=== PATIENT | male | born 1960 | race Caucasian/White ===

== ENCOUNTER 2016-12-07 11:53 | Inpatient (IN) | payer MEDICAID ==
[~2016-12-07] VITALS: Ht 180.3 cm; Wt 113.4 kg
[2016-12-07 12:06] VITALS: BP_SYST 144
[2016-12-07] MEDS ORDERED: ONDANSETRON 4 MG ODT TAB PO ONE (12:15)
[2016-12-07] MEDS ORDERED: NS 1000 ML BAG IV ONE (12:15)
[2016-12-07] MEDS ORDERED: CLINDAMYCIN 900 mg/50mL D5W 50 ML IV ONE (12:15)
[2016-12-07] MEDS ORDERED: traMADol HCL HCL 50 MG TABLET (ULTRAM) PO ONE (12:15)
[2016-12-07] MEDS ORDERED: VANCOMYCIN HCL 1,000 MG in D5W 250 ML IV ONE (12:15)
[2016-12-07] MEDS ORDERED: VANCOMYCIN HCL 1000 MG/VIAL IV ONE (13:02)
[2016-12-07 13:04] LABS: BASOPHILS # (AUTO) 0.1 K/uL (0.0-0.2); BASOPHILS % (AUTO) 0.7 % (0.0-2.0); EOSINOPHILS # (AUTO) 0.2 K/uL (0.0-0.4); EOSINOPHILS % (AUTO) 1.7 % (0.0-4.0); HEMATOCRIT 33.7 % (36-54); HEMOGLOBIN 11.1 g/dL (14.0-18.0); LYMPHOCYTES # (AUTO) 1.6 K/uL (1.0-5.5); LYMPHOCYTES % (AUTO) 11.1 % (20.5-51.5); MEAN CORPUSCULAR HEMOGLOBIN 27 pg (27-31); MEAN CORPUSCULAR HGB CONC 33 % (32-36); MEAN CORPUSCULAR VOLUME 81 fL (79.0-98.0); MONOCYTES # (AUTO) 0.7 K/uL (0.0-1.0); MONOCYTES % (AUTO) 4.7 % (1.7-9.3); NEUTROPHILS # (AUTO) 11.8 K/uL (1.8-7.7); NEUTROPHILS % (AUTO) 81.8 % (40.0-70.0); PLATELET COUNT (AUTO) 529 K/uL (130-430); RED BLOOD CELL COUNT(AUTO) 4.15 MIL/uL (4.2-6.2); RED CELL DISTRIBUTION WIDTH 13.9 % (9.0-15.0); WHITE BLOOD COUNT (AUTO) 14.4 K/uL (4.8-10.8)
[2016-12-07 13:06] LABS: CALCIUM 8.7 mg/dL (8.4-11.0); CREATININE 0.62 mg/dL (0.55-1.30); POTASSIUM 4.1 mmol/L (3.5-5.1)
[2016-12-07 13:14] LABS: PROTHROMBIN TIME 10.5 SECS (9.5-12.5)
[2016-12-07] MEDS ORDERED: MORPHINE 4 MG/ML INJ. SYRINGE IVP PRN (14:15)
[2016-12-07] MEDS ORDERED: ONDANSETRON HCL 4 MG/2 ML VIAL IVP PRN (14:15)
[2016-12-07] MEDS ORDERED: CLON1TAB4 PO (14:59)
[2016-12-07] MEDS ORDERED: SERT25TA PO (14:59)
[2016-12-07 16:42] VITALS: BP_SYST 123
[2016-12-07 19:45] VITALS: BP_SYST 134
[2016-12-07] MEDS: ACETAMINOPHEN 325 MG TABLET PO PRN (20:44)
[2016-12-07] MEDS: NACL 0.9% 1,000 ML IV SCH (20:44)
[2016-12-07] MEDS: DOCUSATE SODIUM 100 MG CAPSULE PO SCH (20:45)
[2016-12-07 20:49] LABS: ALBUMIN 3.3 g/dL (3.4-4.8); BILIRUBIN,DIRECT 0.2 mg/dL (0.0-0.3); FREE T4 (FREE THYROXINE) 0.9 ng/dL (0.6-1.6); PHOSPHORUS 2.8 mg/dL (2.7-4.5); THYROID STIMULATING HORMONE 1.31 uIu/mL (0.34-4.82); TOTAL BILIRUBIN 0.5 mg/dL (0.0-1.0); TOTAL PROTEIN, SERUM 7.2 g/dL (6.4-8.3)
[2016-12-07] MEDS ORDERED: CLINDAMYCIN 600 MG in D5W 50 ML IV ONE (21:00)
[2016-12-07] MEDS ORDERED: DEXTROSE 50% JECT 50 ML DISP.SYRIN IVP PRN ×2 (21:15)
[2016-12-07] MEDS ORDERED: CLINDAMYCIN 600 mg/50mL D5W 100 ML IV ONE (21:30)
[2016-12-07] MEDS: MORPHINE 2 MG/ML INJ. SYRINGE IVP PRN (22:01)
[2016-12-07] MEDS ORDERED: ZOLPIDEM TARTRATE 5 MG TABLET PO ONE (22:15)
[2016-12-08 00:42] VITALS: BP_SYST 135
[2016-12-08 04:02] VITALS: BP_SYST 132
[2016-12-08] MEDS: CLINDAMYCIN 600 MG in D5W 50 ML IV SCH ×4 (05:38→23:41)
[2016-12-08] MEDS: INSULIN REGULAR, HUMAN 100 UNITS/ML, 10 ML VIAL (novoLIN R) SUBCUT PRN ×4 (05:56→20:31)
[2016-12-08 06:58] LABS: BASOPHILS # (AUTO) 0.1 K/uL (0.0-0.2); BASOPHILS % (AUTO) 0.8 % (0.0-2.0); EOSINOPHILS # (AUTO) 0.5 K/uL (0.0-0.4); EOSINOPHILS % (AUTO) 4.3 % (0.0-4.0); HEMATOCRIT 31.4 % (36-54); HEMOGLOBIN 10.3 g/dL (14.0-18.0); LYMPHOCYTES # (AUTO) 2.1 K/uL (1.0-5.5); LYMPHOCYTES % (AUTO) 18.4 % (20.5-51.5); MEAN CORPUSCULAR HEMOGLOBIN 27 pg (27-31); MEAN CORPUSCULAR HGB CONC 33 % (32-36); MEAN CORPUSCULAR VOLUME 82 fL (79.0-98.0); MONOCYTES # (AUTO) 0.7 K/uL (0.0-1.0); MONOCYTES % (AUTO) 6.3 % (1.7-9.3); NEUTROPHILS # (AUTO) 8.1 K/uL (1.8-7.7); NEUTROPHILS % (AUTO) 70.2 % (40.0-70.0); PLATELET COUNT (AUTO) 479 K/uL (130-430); RED BLOOD CELL COUNT(AUTO) 3.84 MIL/uL (4.2-6.2); RED CELL DISTRIBUTION WIDTH 13.6 % (9.0-15.0); WHITE BLOOD COUNT (AUTO) 11.5 K/uL (4.8-10.8)
[2016-12-08 07:07] LABS: CALCIUM 8.2 mg/dL (8.4-11.0); CREATININE 0.55 mg/dL (0.55-1.30); PHOSPHORUS 4.3 mg/dL (2.7-4.5); POTASSIUM 4.3 mmol/L (3.5-5.1)
[2016-12-08 08:00] VITALS: BP_SYST 146
[2016-12-08] MEDS: DOCUSATE SODIUM 100 MG CAPSULE PO SCH ×2 (09:27→20:28)
[2016-12-08] MEDS ORDERED: clonazePAM 0.5 MG TABLET PO PRN (10:00)
[2016-12-08] MEDS: ONDANSETRON HCL 4 MG/2 ML VIAL IVP PRN (11:07)
[2016-12-08 11:37] VITALS: BP_SYST 126
[2016-12-08] MEDS: NACL 0.9% 1,000 ML IV SCH (13:02)
[2016-12-08 16:10] VITALS: BP_SYST 143
[2016-12-08] MEDS ORDERED: SERTRALINE HCL 50 MG TABLET PO ONE (16:30)
[2016-12-08 19:30] VITALS: BP_SYST 142
[2016-12-08] MEDS: MORPHINE 2 MG/ML INJ. SYRINGE IVP PRN (20:41)
[2016-12-08] MEDS: DIPHENHYDRAMINE HCL 12.5 MG/5 ML UDC PO PRN (22:40)
[2016-12-09 00:12] VITALS: BP_SYST 141
[2016-12-09] MEDS: MORPHINE 2 MG/ML INJ. SYRINGE IVP PRN ×2 (02:51→21:50)
[2016-12-09 03:30] VITALS: BP_SYST 140
[2016-12-09] MEDS: CLINDAMYCIN 600 MG in D5W 50 ML IV SCH ×3 (05:27→17:52)
[2016-12-09] MEDS: INSULIN REGULAR, HUMAN 100 UNITS/ML, 10 ML VIAL (novoLIN R) SUBCUT PRN ×4 (06:13→21:56)
[2016-12-09 06:56] LABS: BASOPHILS # (AUTO) 0.1 K/uL (0.0-0.2); BASOPHILS % (AUTO) 0.7 % (0.0-2.0); EOSINOPHILS # (AUTO) 0.6 K/uL (0.0-0.4); EOSINOPHILS % (AUTO) 4.2 % (0.0-4.0); HEMATOCRIT 33.8 % (36-54); HEMOGLOBIN 11.2 g/dL (14.0-18.0); LYMPHOCYTES # (AUTO) 2.3 K/uL (1.0-5.5); LYMPHOCYTES % (AUTO) 17.2 % (20.5-51.5); MEAN CORPUSCULAR HEMOGLOBIN 27 pg (27-31); MEAN CORPUSCULAR HGB CONC 33 % (32-36); MEAN CORPUSCULAR VOLUME 81 fL (79.0-98.0); MONOCYTES # (AUTO) 0.8 K/uL (0.0-1.0); MONOCYTES % (AUTO) 6.1 % (1.7-9.3); NEUTROPHILS # (AUTO) 9.6 K/uL (1.8-7.7); NEUTROPHILS % (AUTO) 71.8 % (40.0-70.0); RED BLOOD CELL COUNT(AUTO) 4.19 MIL/uL (4.2-6.2); RED CELL DISTRIBUTION WIDTH 13.8 % (9.0-15.0); WHITE BLOOD COUNT (AUTO) 13.4 K/uL (4.8-10.8)
[2016-12-09] MEDS: ACETAMINOPHEN 325 MG TABLET PO PRN (07:06)
[2016-12-09 07:18] LABS: CALCIUM 8.6 mg/dL (8.4-11.0); CREATININE 0.53 mg/dL (0.55-1.30); PHOSPHORUS 4.3 mg/dL (2.7-4.5); POTASSIUM 4.1 mmol/L (3.5-5.1)
[2016-12-09 08:00] VITALS: BP_SYST 142
[2016-12-09 08:08] LABS: T4 (THYROXINE) 8.4 ug/dL (4.5-12.0)
[2016-12-09 08:23] LABS: PLATELET COUNT (AUTO) 550 K/uL (130-430)
[2016-12-09] MEDS: DOCUSATE SODIUM 100 MG CAPSULE PO SCH ×2 (08:42→21:00)
[2016-12-09] MEDS: NACL 0.9% 1,000 ML IV SCH (08:49)
[2016-12-09] MEDS: ONDANSETRON HCL 4 MG/2 ML VIAL IVP PRN ×2 (08:54→17:50)
[2016-12-09] MEDS ORDERED: SERTRALINE HCL 50 MG TABLET PO SCH ×2 (09:00)
[2016-12-09] MEDS ORDERED: SERTRALINE HCL 50 MG TABLET PO ONE (10:00)
[2016-12-09] MEDS: LEVOFLOXACIN 500 MG/D5W 100 ML IV SCH (10:14)
[2016-12-09 12:01] VITALS: BP_SYST 150
[2016-12-09 16:00] VITALS: BP_SYST 136
[2016-12-09] MEDS: metFORMIN HCL 500 MG TABLET PO SCH (17:09)
[2016-12-09 20:00] VITALS: BP_SYST 136; BP_SYST 163
[2016-12-10 00:08] VITALS: BP_SYST 147
[2016-12-10] MEDS: CLINDAMYCIN 600 MG in D5W 50 ML IV SCH ×2 (01:21→06:23)
[2016-12-10] MEDS: DIPHENHYDRAMINE HCL 12.5 MG/5 ML UDC PO PRN (01:24)
[2016-12-10 03:50] VITALS: BP_SYST 135
[2016-12-10] MEDS: NACL 0.9% 1,000 ML IV SCH (04:47)
[2016-12-10] MEDS: MORPHINE 2 MG/ML INJ. SYRINGE IVP PRN (04:49)
[2016-12-10] MEDS: INSULIN REGULAR, HUMAN 100 UNITS/ML, 10 ML VIAL (novoLIN R) SUBCUT PRN (06:31)
[2016-12-10 06:39] LABS: BASOPHILS # (AUTO) 0.1 K/uL (0.0-0.2); BASOPHILS % (AUTO) 0.7 % (0.0-2.0); EOSINOPHILS # (AUTO) 0.4 K/uL (0.0-0.4); EOSINOPHILS % (AUTO) 3.4 % (0.0-4.0); HEMATOCRIT 32.7 % (36-54); HEMOGLOBIN 10.7 g/dL (14.0-18.0); LYMPHOCYTES # (AUTO) 2.1 K/uL (1.0-5.5); LYMPHOCYTES % (AUTO) 17.7 % (20.5-51.5); MEAN CORPUSCULAR HEMOGLOBIN 27 pg (27-31); MEAN CORPUSCULAR HGB CONC 33 % (32-36); MEAN CORPUSCULAR VOLUME 82 fL (79.0-98.0); MONOCYTES # (AUTO) 0.8 K/uL (0.0-1.0); MONOCYTES % (AUTO) 6.7 % (1.7-9.3); NEUTROPHILS # (AUTO) 8.6 K/uL (1.8-7.7); NEUTROPHILS % (AUTO) 71.5 % (40.0-70.0); PLATELET COUNT (AUTO) 526 K/uL (130-430); RED BLOOD CELL COUNT(AUTO) 3.98 MIL/uL (4.2-6.2); RED CELL DISTRIBUTION WIDTH 13.9 % (9.0-15.0)
[2016-12-10 07:09] LABS: CALCIUM 8.6 mg/dL (8.4-11.0); CREATININE 0.6 mg/dL (0.55-1.30)
[2016-12-10 08:00] VITALS: BP_SYST 130
[2016-12-10] MEDS: metFORMIN HCL 500 MG TABLET PO SCH (08:00)
[2016-12-10] MEDS ORDERED: LEVO500T20 PO (08:51)
[2016-12-10] MEDS ORDERED: CLIN-77 PO (08:51)
[2016-12-10] MEDS ORDERED: GLU850 PO (08:51)
[2016-12-10] MEDS: DOCUSATE SODIUM 100 MG CAPSULE PO SCH ×2 (09:00→09:25)
[2016-12-10] MEDS ORDERED: SERTRALINE HCL 50 MG TABLET PO SCH (09:00)
[2016-12-10] MEDS ORDERED: GLIP-172 PO (09:20)
[2016-12-10] MEDS: LEVOFLOXACIN 500 MG/D5W 100 ML IV SCH (09:25)
[2016-12-10 10:16] VITALS: BP_SYST 125
[2016-12-10 11:30] VITALS: BP_SYST 140
== END 2016-12-10 12:00 | disposition home or self-care (01) | DRG 720 ==
LOC: SED 11:53 → STU 14:12 → SMU 14:48
PROVIDERS: ADMIT Family Medicine; ATTEND Family Medicine
DX: A41.9 Sepsis, unspecified organism (principal); E11.610 Type 2 diabetes mellitus with diabetic neuropathic arthropathy; E44.0 Moderate protein-calorie malnutrition; E11.65 Type 2 diabetes mellitus with hyperglycemia; L03.115 Cellulitis of right lower limb; F32.9 Major depressive disorder, single episode, unspecified; F41.9 Anxiety disorder, unspecified; I10 Essential (primary) hypertension; Z88.1 Allergy status to other antibiotic agents; Z88.0 Allergy status to penicillin; Z88.8 Allergy status to other drugs, medicaments and biological substances; Z87.81 Personal history of (healed) traumatic fracture; Z68.34 Body mass index [BMI] 34.0-34.9, adult
CPT/HCPCS: 36415; 73590-TC; 80048; 80061; 80076; 82150-TC; 82962; 83036; 83605; 83690-TC; 83735-TC; 83880; 84100-TC; 84436; 84439; 84443-TC; 84479; 85025; 85610-TC; 85730-TC; 87040-TC; 96365; 96368; 97110-GP; 97116-GP; 97530-GP; 99285; J1815; J1956; J2270; J2405; J3370; J3490; J7030; J7060; Q0162

== ENCOUNTER 2016-12-10 14:22 | Emergency (ER) | payer MEDICAID ==
[~2016-12-10] VITALS: Ht 180.3 cm; Wt 124.7 kg
[~2016-12-10 14:22] MED LIST: CLIN-77 PO; CLON1TAB4 PO; GLIP-172 PO; GLU850 PO; LEVO500T20 PO; SERT25TA PO
[2016-12-10 15:03] VITALS: BP_SYST 131
[2016-12-10 16:44] LABS: EOSINOPHILS # (AUTO) 0.1 K/uL (0.0-0.4); EOSINOPHILS % (AUTO) 0.8 % (0.0-4.0); HEMOGLOBIN 12.3 g/dL (14.0-18.0); MONOCYTES # (AUTO) 0.7 K/uL (0.0-1.0); MONOCYTES % (AUTO) 3.9 % (1.7-9.3)
[2016-12-10 16:54] LABS: BASOPHILS # (AUTO) 0.2 K/uL (0.0-0.2); HEMATOCRIT 38.3 % (36-54); LYMPHOCYTES # (AUTO) 1.7 K/uL (1.0-5.5); LYMPHOCYTES % (AUTO) 9.9 % (20.5-51.5); MEAN CORPUSCULAR HEMOGLOBIN 26 pg (27-31); MEAN CORPUSCULAR HGB CONC 32 % (32-36); MEAN CORPUSCULAR VOLUME 82 fL (79.0-98.0); NEUTROPHILS # (AUTO) 14.6 K/uL (1.8-7.7); NEUTROPHILS % (AUTO) 84.4 % (40.0-70.0); PLATELET COUNT (AUTO) 638 K/uL (130-430); RED BLOOD CELL COUNT(AUTO) 4.69 MIL/uL (4.2-6.2); RED CELL DISTRIBUTION WIDTH 14.1 % (9.0-15.0); WHITE BLOOD COUNT (AUTO) 17.3 K/uL (4.8-10.8)
[2016-12-10 17:15] LABS: CALCIUM 9.2 mg/dL (8.4-11.0); CREATININE 0.71 mg/dL (0.55-1.30); POTASSIUM 4.4 mmol/L (3.5-5.1)
[2016-12-10 17:20] LABS: ALBUMIN 3.4 g/dL (3.4-4.8); TOTAL BILIRUBIN 0.6 mg/dL (0.0-1.0); TOTAL PROTEIN, SERUM 7.7 g/dL (6.4-8.3)
[2016-12-10 17:27] LABS: INR 1.1 (0.80-1.20); PROTHROMBIN TIME 11.5 SECS (9.5-12.5)
[2016-12-10 19:01] VITALS: BP_SYST 131
== END 2016-12-10 19:01 | disposition home or self-care (01) ==
LOC: SED 14:22
DX: L03.115 Cellulitis of right lower limb (principal); E11.9 Type 2 diabetes mellitus without complications; Z88.0 Allergy status to penicillin; Z88.1 Allergy status to other antibiotic agents; Z79.84 Long term (current) use of oral hypoglycemic drugs; Z79.899 Other long term (current) drug therapy
CPT/HCPCS: 36415; 80053; 85025; 85610-TC; 85730-TC; 99285

== ENCOUNTER 2019-04-23 10:20 | Emergency (ER) | payer MEDICAID ==
[~2019-04-23] VITALS: Ht 154.9 cm; Wt 147.4 kg
[~2019-04-23 10:20] MED LIST changes: -CLIN-77 PO; +CLIN300C11 PO; +CLON1TAB12 PO; -CLON1TAB4 PO; -GLIP-172 PO; +GLIP10TA21 PO
--- NOTE | 2019-04-23 10:30 | NUR ---
Patient BIB [facility] c/o near syncope episode no trauma. Patient A&Ox4, skin pink and warm, afebrile, nausea, denies V/D, denies pain right BKA, skin wound to right calf. Patient states he had chills, nausea, dry heaves last night and nausea & chills continued today at [facility]. Patient has hx Diabetes & HTN, R BKA
[2019-04-23] MEDS ORDERED: hydrALAZINE HCL 20 MG/ML VIAL IVP ONE (11:00)
[2019-04-23 11:06] LABS: BASOPHILS # (AUTO) 0.1 K/uL (0.0-0.2); BASOPHILS % (AUTO) 0.8 % (0.0-2.0); EOSINOPHILS # (AUTO) 0.2 K/uL (0.0-0.4); EOSINOPHILS % (AUTO) 1.6 % (0.0-4.0); HEMATOCRIT 36.7 % (36-54); LYMPHOCYTES # (AUTO) 1.5 K/uL (1.0-5.5); LYMPHOCYTES % (AUTO) 11.6 % (20.5-51.5); MEAN CORPUSCULAR HEMOGLOBIN 27 pg (27-31); MEAN CORPUSCULAR HGB CONC 33 % (32-36); MEAN CORPUSCULAR VOLUME 84 fL (79.0-98.0); MONOCYTES # (AUTO) 0.5 K/uL (0.0-1.0); MONOCYTES % (AUTO) 4.1 % (1.7-9.3); NEUTROPHILS # (AUTO) 10.7 K/uL (1.8-7.7); NEUTROPHILS % (AUTO) 81.9 % (40.0-70.0); PLATELET COUNT (AUTO) 324 K/uL (130-430); RED BLOOD CELL COUNT(AUTO) 4.37 MIL/uL (4.2-6.2); RED CELL DISTRIBUTION WIDTH 15.5 % (9.0-15.0)
[2019-04-23 11:10] LABS: CALCIUM 8.1 mg/dL (8.4-11.0); CREATININE 1.07 mg/dL (0.55-1.30); POTASSIUM 4.4 mmol/L (3.5-5.1)
[2019-04-23 11:15] LABS: ALBUMIN 3.6 g/dL (3.4-4.8); TOTAL BILIRUBIN 0.5 mg/dL (0.0-1.0)
[2019-04-23] MEDS ORDERED: NS 500 ML IV ONE (11:30)
[2019-04-23] MEDS ORDERED: NACL 0.9% 1,000 ML IV ONE (11:45)
[2019-04-23 12:18] LABS: BILIRUBIN,URINE NEGATIVE (NEGATIVE); BLOOD, URINE NEGATIVE (NEGATIVE); CLARITY/URINE CLEAR (CLEAR); COLOR,URINE YELLOW (YELLOW); GLUCOSE,URINE NEGATIVE (NEGATIVE); KETONES,URINE NEGATIVE (NEGATIVE); LEUKOCYTE ESTERASE ,URINE NEGATIVE (NEGATIVE); NITRITE, URINE NEGATIVE (NEGATIVE); PROTEIN URINE TRACE (NEGATIVE); UROBILINOGEN,URINE 0.2 (0.2-1.0)
[2019-04-23 12:30] LABS: BACTERIA,URINE RARE /HPF (None Seen); WBC,URINE 0-3 /HPF (0-3)
[2019-04-23 13:30] VITALS: BP_SYST 148
--- NOTE | 2019-04-23 13:30 | NUR ---
Patient given written and verbal discharge instructions and verbalizes understanding. ER MD discussed with patient the results and treatment provided. Patient in stable condition. ID arm band removed. IV catheter removed intact and dressing applied, no active bleeding. Rx of BACTRIM & PROMETHAZINE given. Patient educated on pain management and to follow up with PMD. Pain Scale 0/10 . Opportunity for questions provided and answered. Medication side effect fact sheet provided.
== END 2019-04-23 13:30 | disposition home or self-care (01) ==
LOC: SED 10:20
DX: L89.899 Pressure ulcer of other site, unspecified stage (principal); R55 Syncope and collapse; I10 Essential (primary) hypertension; J40 Bronchitis, not specified as acute or chronic; D72.829 Elevated white blood cell count, unspecified; E11.9 Type 2 diabetes mellitus without complications; Z88.0 Allergy status to penicillin; Z88.1 Allergy status to other antibiotic agents; Z79.899 Other long term (current) drug therapy
CPT/HCPCS: 36415; 71045; 80053; 81000; 83605; 83880; 84484; 85025; 86710; 87040; 87086; 93005; 96360; 99284; J7030

== ENCOUNTER 2019-06-03 16:29 | Emergency (ER) | payer MEDICAID ==
[~2019-06-03] VITALS: Ht 177.8 cm; Wt 149.7 kg
--- NOTE | 2019-06-03 16:36 | NUR ---
Placed in room 05. Placed on campus monitor, blood pressure machine, and pulse oximeter. To gown for exam. Side rails up.
--- NOTE | 2019-06-03 16:36 | NUR ---
ER Dr. Kaur at bedside examining patient.
--- NOTE | 2019-06-03 16:36 | NUR ---
Patient AAO x 4 BIB BLS via [facility] to ER bed 05 with complaints of 8/10 RLQ abdominal pain, cough/congestion, and constipation since last night. Reports history of DM2, gallbladder removal, and R BKA. Was seen at [facility] x 2 weeks ago for r/o appendicitis and was discharged. He is unable to ambulate and uses Even chest rise and fall with respirations. Will continue to monitor.
[2019-06-03 16:37] VITALS: BP_SYST 147
[2019-06-03] MEDS ORDERED: ONDANSETRON 4 MG ODT TAB PO ONE (17:00)
[2019-06-03] MEDS ORDERED: ONDANSETRON HCL 4 MG/2 ML VIAL IVP ONE (17:30)
[2019-06-03 18:24] LABS: BASOPHILS # (AUTO) 0.1 K/uL (0.0-0.2); LYMPHOCYTES # (AUTO) 0.6 K/uL (1.0-5.5); MEAN CORPUSCULAR HGB CONC 32 % (32-36)
[2019-06-03 18:29] LABS: BASOPHILS % (AUTO) 0.5 % (0.0-2.0); EOSINOPHILS # (AUTO) 0.1 K/uL (0.0-0.4); EOSINOPHILS % (AUTO) 0.7 % (0.0-4.0); HEMATOCRIT 37.2 % (36-54); LYMPHOCYTES % (AUTO) 5.9 % (20.5-51.5); MEAN CORPUSCULAR HEMOGLOBIN 27 pg (27-31); MEAN CORPUSCULAR VOLUME 84 fL (79.0-98.0); MONOCYTES # (AUTO) 0.5 K/uL (0.0-1.0); MONOCYTES % (AUTO) 4.9 % (1.7-9.3); NEUTROPHILS # (AUTO) 9.5 K/uL (1.8-7.7); PLATELET COUNT (AUTO) 285 K/uL (130-430); RED BLOOD CELL COUNT(AUTO) 4.44 MIL/uL (4.2-6.2); RED CELL DISTRIBUTION WIDTH 16.2 % (9.0-15.0); WHITE BLOOD COUNT (AUTO) 10.8 K/uL (4.8-10.8)
[2019-06-03 18:38] LABS: CALCIUM 8.2 mg/dL (8.4-11.0); CREATININE 0.98 mg/dL (0.55-1.30); POTASSIUM 3.9 mmol/L (3.5-5.1)
[2019-06-03 18:44] LABS: ALBUMIN 3.5 g/dL (3.4-4.8); TOTAL BILIRUBIN 0.6 mg/dL (0.0-1.0)
--- NOTE | 2019-06-03 20:22 | NUR ---
Patient given written and verbal discharge instructions and verbalizes understanding. ER MD Kaur discussed with patient the results and treatment provided. Patient in stable condition. ID arm band removed. IV catheter removed intact and dressing applied, no active bleeding. Rx of Zofran given. Patient educated on pain management and to follow up with PMD. Pain Scale 0. Opportunity for questions provided and answered. Medication side effect fact sheet provided.
[2019-06-03 20:23] VITALS: BP_SYST 126
== END 2019-06-03 20:22 | disposition home or self-care (01) ==
LOC: SED 16:29
DX: A08.4 Viral intestinal infection, unspecified (principal); I10 Essential (primary) hypertension; E11.9 Type 2 diabetes mellitus without complications; Z88.0 Allergy status to penicillin; Z88.1 Allergy status to other antibiotic agents; Z79.84 Long term (current) use of oral hypoglycemic drugs; Z79.899 Other long term (current) drug therapy
CPT/HCPCS: 36415; 71045; 74176; 80053; 83605; 83880; 84484; 85025; 85379; 93005; 96374; 99284; J2405; Q0162

== ENCOUNTER 2019-11-05 08:18 | Emergency (ER) | payer MEDICAID ==
[~2019-11-05] VITALS: Ht 180.3 cm; Wt 147.4 kg
[2019-11-05 08:18] VITALS: BP_SYST 175
--- NOTE | 2019-11-05 08:20 | NUR ---
Patient to ER bed to gown for evaluation. Side rails up.
--- NOTE | 2019-11-05 08:25 | NUR ---
PT PRESENTED TO ER C/O GENERALIZED WEAKNESS. PT BIB BLS FROM HOME A&OX4, AFEBRILE, SKIN PINK & WARM, PAIN 9/10, NAUSEA, DENIES V/D, RIGHT BELOW KNEE AMPUTATION WITH PROSTHETIC IN PLACE. PT STATES HE HAD "HIGH" BP AT HOME CHECKED ON HOME BP MONITOR, HEAD AND GENERAL WEAKNESS.
[2019-11-05] MEDS ORDERED: NACL 0.9% 1,000 ML IV ONE (08:40)
[2019-11-05] MEDS ORDERED: ONDANSETRON HCL 4 MG/2 ML VIAL IVP ONE (08:45)
[2019-11-05] MEDS ORDERED: DIPHENHYDRAMINE INJ 50 MG/ML VIAL IVP ONE (08:45)
[2019-11-05] MEDS ORDERED: LORazepam 2 MG/ML VIAL IVP ONE (09:00)
[2019-11-05 09:16] LABS: BASOPHILS # (AUTO) 0.1 K/uL (0.0-0.2); BASOPHILS % (AUTO) 0.9 % (0.0-2.0); EOSINOPHILS # (AUTO) 0.2 K/uL (0.0-0.4); EOSINOPHILS % (AUTO) 1.7 % (0.0-4.0); HEMATOCRIT 36.8 % (36-54); HEMOGLOBIN 11.8 g/dL (14.0-18.0); LYMPHOCYTES # (AUTO) 1.4 K/uL (1.0-5.5); MEAN CORPUSCULAR HEMOGLOBIN 27 pg (27-31); MEAN CORPUSCULAR HGB CONC 32 % (32-36); MEAN CORPUSCULAR VOLUME 84 fL (79.0-98.0); MONOCYTES # (AUTO) 0.6 K/uL (0.0-1.0); MONOCYTES % (AUTO) 4.9 % (1.7-9.3); NEUTROPHILS # (AUTO) 9.4 K/uL (1.8-7.7); NEUTROPHILS % (AUTO) 80.5 % (40.0-70.0); PLATELET COUNT (AUTO) 262 K/uL (130-430); RED BLOOD CELL COUNT(AUTO) 4.41 MIL/uL (4.2-6.2); WHITE BLOOD COUNT (AUTO) 11.7 K/uL (4.8-10.8)
[2019-11-05 09:44] LABS: CALCIUM 8.4 mg/dL (8.4-11.0); CREATININE 1.32 mg/dL (0.55-1.30)
[2019-11-05] MEDS ORDERED: DIPHENHYDRAMINE INJ 50 MG/ML VIAL ONE (09:46)
[2019-11-05 09:47] LABS: PROTHROMBIN TIME 9.9 SECS (9.5-12.5)
[2019-11-05 09:59] LABS: ALBUMIN 3.4 g/dL (3.4-4.8); FREE T4 (FREE THYROXINE) 1.3 ng/dl (0.8-1.5); THYROID STIMULATING HORMONE 2.38 uIu/mL (0.36-3.74); TOTAL BILIRUBIN 0.5 mg/dL (0.0-1.0)
[2019-11-05 11:01] LABS: BILIRUBIN,URINE NEGATIVE (NEGATIVE); BLOOD, URINE NEGATIVE (NEGATIVE); CLARITY/URINE CLEAR (CLEAR); COLOR,URINE YELLOW (YELLOW); GLUCOSE,URINE NEGATIVE (NEGATIVE); KETONES,URINE NEGATIVE (NEGATIVE); LEUKOCYTE ESTERASE ,URINE NEGATIVE (NEGATIVE); NITRITE, URINE NEGATIVE (NEGATIVE); PROTEIN URINE NEGATIVE (NEGATIVE); UROBILINOGEN,URINE 0.2 (0.2-1.0)
[2019-11-05 13:33] VITALS: BP_SYST 147
== END 2019-11-05 13:33 | disposition home or self-care (01) ==
LOC: SED 08:18
DX: F41.9 Anxiety disorder, unspecified (principal); N28.9 Disorder of kidney and ureter, unspecified; E11.29 Type 2 diabetes mellitus with other diabetic kidney complication; I11.0 Hypertensive heart disease with heart failure; I50.9 Heart failure, unspecified; R42 Dizziness and giddiness; E78.5 Hyperlipidemia, unspecified; R53.1 Weakness; R51 Headache; F17.200 Nicotine dependence, unspecified, uncomplicated; Z79.899 Other long term (current) drug therapy; Z88.1 Allergy status to other antibiotic agents; Z88.0 Allergy status to penicillin
CPT/HCPCS: 36415; 71045; 80053; 81003; 82150; 82550; 83605; 83690; 83880; 84439; 84443; 84479; 84484; 85025; 85610; 85730; 86710; 87040; 93005; 96361; 96374; 96375; 99285; J1200; J2060; J2405